=== PATIENT | male | born 1955 | race Caucasian/White ===

== ENCOUNTER → 2024-01-03 | Outpatient (CLI) | payer MEDICARE ==
--- NOTE | 2024-01-03 20:59 | US ---
EXAMINATION TYPE: US prostate transrectal DATE OF EXAM: 01/03/2024 COMPARISON: NONE CLINICAL INDICATION: Male, 68 years old with history of R97.20 ELEVATED PSA; Abnormal PSA. No GILBERT. This examination was performed using the transrectal probe. EXAM MEASUREMENTS: Gland Size: 5.3 x 4.3 x 3.6 cm Volume: 42.7 mL Predicted PSA: 5.1 Actual PSA (if available):4.8 Right hypoechoic area seen at mid/base region = 0.5 x 0.4 x 0.4 cm. IMPRESSION: 1. 0.5 cm hypoechoic lesion within the right aspect of the mid/base. Further evaluation with MRI pros leone is recommended. 2. Mildly enlarged prostate gland.
== END | disposition home or self-care (01) ==
LOC: RADUSWWP 09:05
PROVIDERS: ATTEND Surgery
DX: N40.0 Benign prostatic hyperplasia without lower urinary tract symptoms (principal); R97.20 Elevated prostate specific antigen [PSA]
CPT/HCPCS: 76872

== ENCOUNTER → 2024-04-24 | Outpatient (CLI) | payer MEDICARE | END | disposition home or self-care (01) | LOC: LABWHC1 10:27 | PROVIDERS: ATTEND Surgery | DX: R97.20 Elevated prostate specific antigen [PSA] (principal) | CPT/HCPCS: 36415; 84153 ==

== ENCOUNTER → 2024-04-24 | Outpatient (CLI) | payer MEDICARE ==
--- NOTE | 2024-04-29 11:43 | MR ---
EXAMINATION TYPE: MR Prostate wo/w con DATE OF EXAM: 04/24/2024 10:55 AM COMPARISON: None. CLINICAL INDICATION: Male, 68 years old with history of R97.20 ELEVATED PSA C61 MALIGNANT NEOPLASM OF PROS; Prostate cancer, elevated PSA. TECHNIQUE: Multi-planar, multi-sequence imaging of the pelvis is performed prior to and following the uncomplicated administration of bolus intravenous gadolinium. CONTRAST: 9 Gadavist Interpretive Criteria: PI-RADS v2.1 SERUM PSA: 5--24 = 4.76 4--24 = 4.50 SURGICAL PATHOLOGY: Biopsy 03/12/2024 positive for cancer in the left gland. FINDINGS: Prostatic dimensions: 4.7 x 4.7 x 3.0 cm. "Bullet" Volume:43.37 (PSA density=0.11 ng/mL/mL) CENTRAL GLAND (Central and Transition Zones/CZ+TZ): Multiple bilateral, heterogenous appearing hypertrophic stromal nodules, without suspicious lesion. ( PI-RADS 2) PERIPHERAL ZONE (PZ): High T DWI low ADC signal low T2 signal lesion measuring 12 x 10 x 8 mm in the posterior lateral aspe ct of the mid gland. No extracapsular extension. No other suspicious lesions. (PI-RADS 4) SEMINAL VESICLES (SV): Symmetric and unremarkable. PERIPROSTATIC TISSUES: Unremarkable. LYMPH NODES: No enlarged pelvic lymph node. REMAINING PELVIS: Bladder wall is within normal limits given distention. No abnormal free or organized intrapelvic fluid collection. No pathologic bowel dilation or mural thickening. Bilateral fat containing inguinal hernias. OSSEOUS STRUCTURES: No suspicious osseous abnormality. IMPRESSION: 1. PI-RADS 4 lesion in the left peripheral zone mid gland measuring up to 12 x 10 x 8 mm. 2. Mild BPH, estimated gland volume 43.37 mL. 3. No suspicious osseous lesion. No lymphadenopathy. No evidence of prostate adenocarcinoma involving the periprostatic tissues. [facility], , 04/29/2024 11:40 AM
== END | disposition home or self-care (01) ==
LOC: RADMRIMAIN 08:53
PROVIDERS: ATTEND Surgery
DX: R97.20 Elevated prostate specific antigen [PSA] (principal); C61 Malignant neoplasm of prostate; N40.0 Benign prostatic hyperplasia without lower urinary tract symptoms; K40.20 Bilateral inguinal hernia, without obstruction or gangrene, not specified as recurrent
CPT/HCPCS: 72197

== ENCOUNTER → 2024-06-27 | Outpatient (CLI) | payer MEDICARE ==
[~2024-06-27] MED LIST: REGADENOSON 0.4 MG/5 ML SYRINGE IV PRN
--- NOTE | 2024-06-28 07:10 | NM ---
EXAMINATION TYPE: NM stress lexiscan cardiolite DATE OF EXAM: 06/27/2024 COMPARISON: NONE HISTORY: Preprocedure testing cardiac risk TECHNIQUE: After the intravenous administration of 9.4 mCi Tc 99m Sestamibi - Cardiolite resting SPE CT images acquired 45 minutes post injection. At peak stress 25.6 mCi Tc 99m Sestamibi - Stress images obtained 45 minutes post injection The patient was stressed with 0.4mg Lexiscan. FINDINGS: There is a fixed defect along the lateral wall near the cardiac apex. No reversible stress defects on Spect images. Wall motion is normal. Ejection fraction is calculated to be 67 %. IMPRESSION: 1. There may be a prior infarct along the lateral wall near the cardiac apex. 2. No stress-induced ischemic changes. [facility], , 06/28/2024 7:08 AM
--- NOTE | 2024-06-28 10:07 | CA ---
Lexiscan Nuclear Stress Test Report Name: Alexis West Exam Date: 06/27/2024 09:40 Exam Location: [place] Stress Ht (in): 69 Wt (lb): 200 BSA: 2.07 Ordering Phys: Alf Maloney DO Referring Phys: ALF MALONEY,, Technologist: Jack Schmidt Age: 68 Gender: M : 1955 Procedure CPT: Indications: Z01.818 Pre-procedural testing ICD-10 Codes: Patient History: Medications: SEE LIST Meds past 24 hrs: Pretest Chest Pain: STRESS TEST Lexiscan Protocol Exercise Duration (min:sec): 01:[address] Depressions (mm): Angina Score: Montez Score: Resting HR (bpm): 74 Peak HR (bpm): 101 Resting BP (mmHg): 121 / 86 Peak BP (mmHg): 132 / 77 MPHR: 154 Target HR: 131 % MPHR: 66 METS: 1.0 Total Dose: Peak Dose: Atropine: Double Product: [id number] BP Response: Stress Termination: INFUSION COMPLETE Stress Symptoms: NECK PAIN,JAW PAIN,CHEST PRESSURE Stress Summary: ECG ANALYSIS Resting ECG: Stress ECG: CONCLUSIONS Baseline EKG revealed a normal sinus rhythm without significant ST-T changes. With Lexiscan administration the heart rate went up from 74-88 bpm and blood pressure changed from 121/86-119/79. Patient had some vague chest and jaw discomfort that was very transient. EKG was unremarkable. By EKG criteria this is a unremarkable Lexiscan stress test. The nuclear scan results which are more pertinent will be reported with radiologist Dr. Soo Nava MD (Electronically Signed) Final Date: 28 June 2024 10:07
--- NOTE | 2024-06-28 10:11 | CA ---
Transthoracic Echo Report Name: Alexis West Age: 68 Gender: M : 1955 Exam Date: 06/27/2024 09:48 Exam Location: [place] Echo Ht (in): 69 Wt (lb): 200 Ordering Physician: Jas Maloney DO Attending/Referring Phys: Hand Rug Braider Samina Shin RDCS Procedure CPT: Indications: Z01.818 Pre-procedural testing Cardiac Hx: Technical Quality: Fair Contrast 1: Total Dose (mL): Contrast 2: Total Dose (mL): MEASUREMENTS (Male / Female) Normal Values 2D ECHO LV Diastolic Diameter PLAX 5.0 cm 4.2 - 5.9 / 3.9 - 5.3 cm LV Systolic Diameter PLAX 1.8 cm IVS Diastolic Thickness 1.0 cm 0.6 - 1.0 / 0.6 - 0.9 cm LVPW Diastolic Thickness 1.0 cm 0.6 - 1.0 / 0.6 - 0.9 cm LV Relative Wall Thickness 0.4 RV Internal Dim ED PLAX 2.6 cm LA Systolic Diameter LX 3.7 cm 3.0 - 4.0 / 2.7 - 3.8 cm LV Diastolic Volume MOD BP 64.0 cm??? 67 - 155 / 56 - 104 cm??? LV Systolic Volume MOD BP 35.0 cm??? 22 - 58 / 19 - 49 cm??? LV Ejection Fraction MOD BP 45.3 % >= 55 % LV Cardiac Index MOD BP 997.2 cm???/min???m??? LV Diastolic Volume MOD 4C 83.1 cm??? LV Systolic Volume MOD 4C 38.2 cm??? LV Ejection Fraction MOD 4C 54.0 % LV Cardiac Index MOD 4C 1543.6 cm???/min???m??? LV Diastolic Length 4C 7.3 cm LV Systolic Length 4C 6.7 cm LV Diastolic Volume MOD 2C 43.8 cm??? LV Systolic Volume MOD 2C 27.5 cm??? LV Ejection Fraction MOD 2C 37.3 % LV Cardiac Index MOD 2C 561.3 cm???/min???m??? LV Diastolic Length 2C 6.4 cm LV Systolic Length 2C 5.8 cm LA Volume 37.1 cm??? 18 - 58 / 22 - 52 cm??? LA Volume Index 17.5 cm???/m??? 16 - 28 cm???/m??? M-MODE Aortic Root Diameter MM 3.9 cm LA Systolic Diameter MM 3.5 cm LA Ao Ratio MM 0.9 AV Cusp Separation MM 1.9 cm DOPPLER MV Area PHT 2.6 cm??? Mitral E Point Velocity 71.3 cm/s Mitral A Point Velocity 94.4 cm/s Mitral E to A Ratio 0.8 MV Deceleration Time 293.3 ms TR Peak Velocity 216.6 cm/s TR Peak Gradient 18.8 mmHg Right Ventricular Systolic Press 23.4 mmHg FINDINGS Left Ventricle Left ventricular ejection fraction is estimated at 55-60%. Normal Left ventricular size, wall thickness, systolic function with no obvious regional wall motion abnormalities. Right Ventricle Normal right ventricular size and function. Right ventricular systolic pressure within normal limits. Right Atrium Normal right atrial size. Left Atrium Normal left atrial size. Mitral Valve Structurally normal mitral valve. Trace mitral regurgitation. No mitral stenosis. Aortic Valve No aortic valve stenosis or regurgitation. Trileaflet aortic valve. Tricuspid Valve Structurally normal tricuspid valve. Mild tricuspid regurgitation. No tricuspid stenosis. Pulmonic Valve Structurally normal pulmonic valve. Trace pulmonic regurgitation. No pulmonic stenosis. Pericardium No pericardial or pleural effusion. Aorta Mild aortic dilatation at the level of the sinuses of valsalva (root), 3.9cm. CONCLUSIONS Normal LV size and systolic function. Mild dilated aortic root of about 3.9 cm. No significant abnormality on the Doppler exam. No pericardial effusion Previewed by: Dr. Soo Nava MD (Electronically Signed) Final Date: 28 June 2024 10:11
== END | disposition home or self-care (01) ==
LOC: RADNMMAIN 08:10
PROVIDERS: ATTEND Family Medicine
DX: Z01.818 Encounter for other preprocedural examination (principal); E11.9 Type 2 diabetes mellitus without complications; I10 Essential (primary) hypertension
CPT/HCPCS: 93017; 93306; 78452; A9500; J2785